=== PATIENT | male | born 1955 | race Caucasian/White ===

== ENCOUNTER 2019-10-02 08:03 | Day surgery (SDC) | payer OTHER, SELFPAY ==
[2019-09-28 15:23] VITALS: BMI 28.0
[2019-10-02] VITALS (10 sets, daily range): BP systolic 114–156; BP diastolic 57–73; PULSE 53–95; RESP 11–20; TEMP 36.1–36.7; O2SAT 92–99; BMI 27.0
[2019-10-02] MEDS: LACTATED RINGERS 1,000 ML 100 ML IV ×2 (08:43→10:14)
--- NOTE | 2019-10-02 08:59 | P.HP_ITS ---
History of Present Illness History of Present Illness Date Patient Seen: 10/02/19 Time Patient Seen: 08:59 Chief complaint: [id number] LAP RIH REPAIR/POSS LIH REPAIR Narrative: 10/01-No interval changes in health. 08/30/1990-01-nulj-old male with 2 years of right lower quadrant discomfort and recently a small bulge in his right groin. In addition to this he has some radiation of discomfort down to his right testicle. No prior hernias or abdominal surgery. No episodes of hernia incarceration. No history of coronary artery disease, valvular disease, arrhythmia, peripheral vascular disease, diabetes, stroke, pulmonary or renal insufficiency. They are a nonsmoker and not on anticoagulation. 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 Patient History Medical History (Updated 09/28/19 @ 15:25 by Brisa Serrano RN) Depression (Acute) Facial trauma (Acute) Kidney stones (Acute) PAC (premature atrial contraction) (Acute) Sinus drainage (Acute) Surgical History (Updated 09/28/19 @ 15:25 by Brisa Serrano RN) H/O craniotomy (Acute 1977) History of eyelid surgery (Acute 1977) Hx of nasal septoplasty (Acute 1985) Hx of rhinoplasty (Acute 1985) Hx of tonsillectomy (Acute) Family & Social History Social History: household members spouse Tobacco & Substance use: Smoking Status Never smoker alcohol intake current alcohol intake frequency a few times a week Substance Use Type does not use Meds Home Medications and Allergies Home Medications Medication Instructions Recorded Confirmed Type escitalopram oxalate 20 mg tablet 20 mg PO DAILY 08/30/19 10/02/19 History trazodone 50 mg tablet 50 mg PO BEDTIME PRN 08/30/19 10/02/19 History Allergies Allergy/AdvReac Type Severity Reaction Status Date / Time No Known Drug Allergies Allergy Verified 10/02/19 08:27 Review of Systems Review of Systems Narrative: A 10 point review of systems is negative except as noted in the HPI Exam Vital Signs (past 8 hours): - 10/02/19 08:33 Temperature 96.9 F L Pulse Rate 53 L Respiratory Rate 16 Blood Pressure 156/72 H Pulse Oximetry 97 Oxygen Delivery Method Room Air Narrative Exam Narrative: General-no acute distress, well nourished HEENT-moist mucous membranes, no scleral icterus Neck-supple, no lymphadenopathy Chest- non labored respirations, clear to auscultation bilaterally Cardiac-regular rate no peripheral edema Abdomen-soft, nontender, non distended Extremities-warm, well perfused Neurological-alert and oriented, no focal deficits Assessment & Plan Assessment and plan (1) Right inguinal hernia: Current visit: No Status: Acute Assessment & Plan narrative: Doug is a 63-year-old man with a symptomatic right inguinal possible left inguinal and umbilical hernia. He presents for elective repair. A laparoscopic right possible left inguinal hernia repair with open umbilical hernia repair is indicated. We have discussed the risks of the procedure including bleeding infection recurrence, damage to surrounding structures testicular ischemia. We discussed the expected postoperative recovery and course his questions have been answered and he is in agreement with this plan.
[2019-10-02] MEDS: CEFAZOLIN 2 GM/100 ML FROZ.PIGGY IV (09:07)
--- NOTE | 2019-10-02 09:34 | SUR.OPER ---
Supine on padded OR bed, head on pillow, bilateral arms arm padded and tucked at side, legs uncrossed, safety belt at thigh, tape over blanket over lower legs .
[2019-10-02] MEDS: BUPIVACAINE 0.25% (PF) VIAL 30 ML INJ (09:46)
--- NOTE | 2019-10-02 11:34 | PM.OP.1 ---
Operative Date/Time/Diagnoses Date of procedure: 10/02/19 Time of procedure: 11:34 Pre-op diagnosis: bilateral inguinal hernia umbilical hernia Post-op diagnosis: same Procedure & Clinicians Procedure: laparoscopic bilateral inguinal hernia repair open umbilical hernia repair Same procedure as scheduled: Yes Indications: The symptomatic bilateral inguinal hernia, symptomatic umbilical hernia Surgeon: Lucas Gutiérrez Click Yes if Unassisted: Yes Anesthesia Type: General Operative Notes Findings: Bilateral indirect inguinal hernias, 1 cm fascial defect at the umbilicus containing omentum Specimen(s): none sent Estimated Blood Loss (mL): 20 Procedure in detail: The patient was brought to the operating room and placed supine on the table. Bilateral sequential compression devices were applied. General anesthesia was induced and they were intubated with an endotracheal tube. A keith cath was placed in sterile fashion. They received a Ancef prior to skin incision. They were prepped and draped in sterile fashion. A time out was performed to ensure the correct patient, procedure and necessary equipment within the operating room. The skin was infiltrated with 0.25% bupivicaine. A 1 cm supra umbilical midline incision was made. The fascia was elevated and sharply incised and the abdomen entered traumatically. A 12mm balloon port was placed and pneumoperitoneum was established at 15mm Hg. Inspection of the abdomen demonstrated no evidence of injury upon entry. Two 5 mm ports were then placed under direct visualization in the right and left lower quadrant lateral to the rectus muscle. Bilateral inguinal hernia defects were observed I began with the right. The vas deferns the spermatic vessels were identified and protected. The peritoneum 4 cm superior to the deep inguinal ring between the medial umbilical ligament and the anterior superior iliac spine was incised. The peritoneal flap was retracted and the preperitoneal tissue was dissected off the flap beginning lateral to the inferior epigastric artery and towards the ASIS and to posterior limit of the psoas muscle to develop the lateral aspect of the pocket. Next the peritoneum medial to the inferior epigastric was mobilized towards the median umbilical ligament to develop the medial aspect of the pocket. The space of Retzius was fully dissected such that the Oleg's ligament and the pubic symphysis were visible. Next, the peritoneum was mobilized off the the spermatic vessels and vas deferns. The indirect hernia sac was Keith dissected off of the cord structures. A medium Bard 3D Max mesh was then placed into the abdomen and positioned such that the myopectineal orifice was completely covered with good overlap on all sides. The mesh was anchored to the pubic tubercle and to Oleg?s ligament. The peritoneal flap was then repositioned back to its original position and tacks were used to anchor it in position such that no bowel could herniate into the preperitoneal space. The area was examined for hemostasis. Next approached the left inguinal hernia. The lateral attachments stuck to the sigmoid colon where sharply incised in order to mobilize it medial and out of the groin. The peritoneum 4 cm superior to the deep inguinal ring between the medial umbilical ligament and the anterior superior iliac spine was incised. The peritoneal flap was retracted and the preperitoneal tissue was dissected off the flap beginning lateral to the inferior epigastric artery and towards the ASIS and to posterior limit of the psoas muscle to develop the lateral aspect of the pocket. Next the peritoneum medial to the inferior epigastric was mobilized towards the median umbilical ligament to develop the medial aspect of the pocket. The space of Retzius was fully dissected such that the Oleg's ligament and the pubic symphysis were visible. Next, the peritoneum was mobilized off the the spermatic vessels and vas deferns. The indirect hernia sac was Keith dissected off of the cord structures. A medium Bard 3D Max mesh was then placed into the abdomen and positioned such that the myopectineal orifice was completely covered with good overlap on all sides. The mesh was anchored to the pubic tubercle and to Oleg?s ligament. The peritoneal flap was then repositioned back to its original position and tacks were used to anchor it in position such that no bowel could herniate into the preperitoneal space. The area was examined for hemostasis. The 5mm trocars were removed under direct visualization and pneumoperitoneum was deflated through the umbilical trocar. Made a curvilinear incision inferior to the umbilicus. The subcutaneous tissues were divided. The umbilical hernia was identified and was dissected off the umbilicus and circumferentially. The umbilical hernia sac was opened carefully using Howard and contained viable omentum. The hernia sac was then closed with 3 0 Vicryl suture. The sac was reduced into the abdomen and the fascia was cleared from above. The main fascial defect was 1 cm in diameter The fascial edges were then reapproximated with a [id number] 0 PDS suture.The subcutaneous tissues were reapproximated using 3 0 Vicryl skin closed with 4 0 Monocryl upon by the application of Dermabond and Steri-Strips. Sponge instrument count at the end of the operation was correct. Patient tolerated procedure well was extubated and transferred to postoperative care unit in stable condition. The fascia at the umbilicus was closed with 0-Vicryl in figure of 8 fashion, skin closed with 4-0 Monocyl followed by Dermabond. The sponge and instrument count at the end of the case was correct. Both testicles were entirely within the scrotum at the end of the case. The patient emerged from anesthsia was extubated and transferred to recovery in stable condition. Complications: none Post-operative Condition: stable Disposition: same day surgery
[2019-10-02] MEDS: OXYCODONE/ACETAMINOPHEN 5/325 TABLET 1 TAB PO ×2 (11:37→12:16)
[2019-10-02] MEDS: HYDROMORPHONE 2 MG INJ IV (11:38)
[2019-10-02] MEDS: KETOROLAC 30 MG/ML VIAL IV (11:38)
[2019-10-02] MEDS: fentaNYL 100 MCG/2 ML INJ IV ×2 (11:52→12:16)
--- NOTE | 2019-10-02 11:55 | SUR.PHASEI ---
Gave pain medication for c/o pain.
--- NOTE | 2019-10-02 13:26 | SUR.PHASEII ---
1320 Pt had glasses upon discharge
== END 2019-10-02 13:25 | disposition home or self-care (01) ==
PROVIDERS: PCP Family Medicine; Referring Provider Surgery; Visit Provider Surgery
PROC: 0YQ54ZZ Repair Right Inguinal Region, Percutaneous Endoscopic Approach (ICD-10-PCS; CPT 49650; principal; 2019-10-02 09:15)
DX: K40.20 Bilateral inguinal hernia, without obstruction or gangrene, not specified as recurrent (principal); K42.9 Umbilical hernia without obstruction or gangrene
CPT/HCPCS: 49650; 49585; C1781; J0360; J0690; J1100; J1170; J1885; J2405; J2704; J3010

== ENCOUNTER → 2021-12-08 11:45 | Outpatient (CLI) | payer MEDICARE, SELFPAY ==
--- NOTE | 2021-12-08 11:49 | DI.RAD.S_ITS ---
PROCEDURE: XR LUMBAR SPINE MIN 4V INDICATIONS: BACK PAIN TECHNIQUE: 4 views of the lumbar spine were acquired, including bilateral oblique views. COMPARISON: None. FINDINGS: Bones: 5 nonrib-bearing vertebrae are present. There is 3 mm retrolisthesis of L1 on L2 and L2 on L3. No vertebral body compression fractures. Degenerative endplate changes are noted throughout lumbar spine. No suspicious bony lesions. Soft tissues: Overlying bowel gas pattern is normal. No suspicious soft tissue calcifications. Oblique images: No pars defects. IMPRESSION: 3 mm retrolisthesis at L2-3 and L3-4 levels. No acute compression fracture. Degenerative disc disease throughout lumbar spine. Dictated by: Paulo Catherine M.D. on 12/08/2021 at 13:01 Approved by: Paulo Catherine M.D. on 12/08/2021 at 13:02
== END ==
PROVIDERS: Referring Provider Physical Medicine & Rehabilitation; Visit Provider Physical Medicine & Rehabilitation
DX: M54.9 Dorsalgia, unspecified (principal); M43.16 Spondylolisthesis, lumbar region; M51.36 Other intervertebral disc degeneration, lumbar region
CPT/HCPCS: 72110

== ENCOUNTER → 2022-06-15 15:39 | Outpatient (CLI) | payer MEDICARE, SELFPAY ==
--- NOTE | 2022-06-15 15:40 | DI.MRI.S_ITS ---
PROCEDURE: MR LUMBAR SPINE WO CON INDICATIONS: Chronic progressive axial low back pain right greater than l TECHNIQUE: Noncontrast sagittal T1 spin echo and T2 fast echo, sagittal STIR, and T2 fast spin echo through the lumbar spine. In cases with scoliosis, additional coronal T2 fast spin echo may be performed. COMPARISON: [facility], RG, CT ABDOMEN/PELVIS WITH CONTRAST, 09/12/2019, 15:09. [facility], CR, XR LUMBAR SPINE MIN 4V, 12/08/2021, 11:36. FINDINGS: Image quality: Excellent. Alignment and Curvature: There is normal bony alignment. Bone Marrow: Marrow is of normal overall signal. No acute vertebral body compression fractures. Incidental note is made of a limbus vertebral body involving the anterior superior portion of the L3 vertebral body. Spinal Cord: Conus medullaris terminates at the L1 level. Visualized cord demonstrates normal signal and size. Paraspinous Soft Tissues: No paravertebral masses. T12-L1: No significant abnormality is seen. L1-L2: Normal appearance. L2-L3: The disc height is well-preserved. Loss of disc signal is seen at this level. Mild generalized disc bulge is seen. There is [id number] left-sided and minimal right-sided neural foraminal narrowing. No significant central canal narrowing is seen. L3-L4: The disc height is well-preserved. Loss of disc signal is seen at this level. Moderate generalized disc bulge is seen. Mild facet joint hypertrophy is seen. There is moderate right-sided and at least moderate left-sided neural foraminal narrowing. There is a degree of compression seen upon the exiting left L3 nerve root. Mild central canal narrowing is seen. L4-L5: The disc height is well-preserved. Loss of disc signal is seen at this level. At least moderate disc bulge is seen at this level. At least moderate facet hypertrophy is seen. Associated hypertrophy of the ligamentum flavum can be seen. There is fluid seen within the right facet joint. There is moderate to severe bilateral neural foraminal narrowing seen, with an associated a degree of compression seen upon the exiting nerve roots. At least moderate central canal narrowing is seen. L5-S1: The disc height and disc signal are relatively well preserved. Mild generalized disc bulge is seen. There is a superimposed central disc protrusion. There is a focal annular fissure seen posteriorly. Mild to moderate facet hypertrophy is seen. There is moderate bilateral neural foraminal narrowing seen, left worse than right. There is a mild degree of compression seen upon the exiting left L5 nerve root. No significant central canal narrowing is seen. IMPRESSION: Multiple levels of degenerative change are seen, which are overall worst at the L4-L5 level. Additional findings: L3 limbus vertebral body Annular fissure posteriorly at L5-S1 Dictated by: Mac Snow M.D. on 06/15/2022 at 16:42 Approved by: Mac Snow M.D. on 06/15/2022 at 16:46
== END ==
PROVIDERS: PCP Nurse Practitioner Family; Referring Provider Physical Medicine & Rehabilitation; Visit Provider Physical Medicine & Rehabilitation
DX: M47.817 Spondylosis without myelopathy or radiculopathy, lumbosacral region (principal); M47.816 Spondylosis without myelopathy or radiculopathy, lumbar region; M43.16 Spondylolisthesis, lumbar region
CPT/HCPCS: 72148